=== PATIENT | male | born 1985 ===

== ENCOUNTER 2024-05-24 15:05 | Emergency (ER) | payer BC ==
[2024-05-24 16:02] LABS: BASOPHILS ABSOLUTE AUTO 0.1 K/mm3 (0.0-0.2); BASOPHILS PERCENT AUTO 0.5 % (0.0-1.0); HEMATOCRIT 38.4 % (42.0-52.0); HEMOGLOBIN 13.8 gm/dl (14.0-18.0); IMMATURE GRAN ABSOLUTE AUTO 0.07 K/mm3 (0.00-0.05); IMMATURE GRAN PERCENT AUTO 0.6 % (0.0-0.4); LYMPHOCYTES ABSOLUTE AUTO 1.3 K/mm3 (1.0-4.8); LYMPHOCYTES PERCENT AUTO 10.7 % (24.0-44.0); MEAN CORPUSCULAR HEMOGLOBIN 30.6 pg (28.0-32.0); MEAN CORPUSCULAR HGB CONC 35.9 g/dl (32.0-36.0); MEAN CORPUSCULAR VOLUME 85.1 fl (83.0-99.0); MEAN PLATELET VOLUME 10.6 fl (9.4-12.4); MONOCYTES ABSOLUTE AUTO 0.6 K/mm3 (0.0-0.8); MONOCYTES PERCENT AUTO 4.7 % (0.0-8.0); NEUTROPHILS ABSOLUTE AUTO 10.1 K/mm3 (1.8-7.7); NEUTROPHILS PERCENT AUTO 83.5 % (41.0-71.0); PLATELET COUNT,PLT 273 K/mm3 (150-400); RED BLOOD CELL COUNT 4.51 M/mm3 (4.52-5.90); WHITE BLOOD CELL COUNT,WBC 12.04 K/mm3 (3.9-11.3)
[2024-05-24 16:35] LABS: A/G RATIO 1.5 (1-2); ALANINE AMINOTRANSFERASE,ALT 36 U/L (16-63); ALBUMIN 4.2 g/dl (3.4-5.0); ALKALINE PHOSPHATASE 60 U/L (46-116); ANION GAP 14.3 (5-15); ASPARTATE AMNIOTRANSFERASE,AST 21 U/L (15-37); BILIRUBIN TOTAL 0.9 mg/dL (0.2-1.0); BLOOD UREA NITROGEN,BUN 7 mg/dL (7-18); CALCIUM 8.8 mg/dL (8.5-10.1); CARBON DIOXIDE,CO2 23 mEq/L (21-32); CHLORIDE,CL 91 mEq/L (98-107); EST CRCL DRUG DOSING (CG) 100.16 mL/min; ESTIMATED GFR 99 mL/min (>60); GLUCOSE RANDOM 111 mg/dL (70-99); POTASSIUM,K 3.3 mEq/L (3.5-5.1); SODIUM,NA 125 mEq/L (136-145)
[2024-05-24] MEDS: Ketorolac 30 MG/ML SDV IVPUSH ONE (16:36)
[2024-05-24 16:38] LABS: TROPONIN I HIGH SENSITIVITY < 4 pg/mL (<=76)
[2024-05-24 16:55] LABS: BARBITURATE SCREEN,URINE NEGATIVE (CUTOFF=200); BENZODIAZEPINES SCREEN,URINE NEGATIVE (CUTOFF=150); BUPRENORPHINE SCREEN,URINE NEGATIVE (CUTOFF=10); METHADONE SCREEN, URINE NEGATIVE (CUT0FF=200); METHAMPHETAMINES SCREEN, URINE NEGATIVE (CUTOFF=500); OXYCODONE SCREEN,URINE NEGATIVE (CUT0FF=100); THC SCREEN,URINE 20 NG/ML NEGATIVE (CUTOFF=50)
[2024-05-24] MEDS ORDERED: Sodium Chloride 0.9% 1,000 ML IV SCH (17:00)
[2024-05-24 17:08] LABS: AMPHETAMINES SCREEN, URINE NEGATIVE (CUTOFF=500)
[2024-05-24] MEDS: LORazepam 2 MG/ML SDV IVPUSH ONE (17:19)
[2024-05-24] MEDS: Sodium Chloride 0.9% 500 ML IV SCH (17:40)
[2024-05-24] MEDS: Potassium Chloride 20 MEQ Tab.ER PO ONE (18:10)
[2024-05-24] MEDS: Sodium Chloride 0.9% 1,000 ML IV STA (19:53)
[2024-05-24 20:10] LABS: ANION GAP 13.4 (5-15); BUN/CREATININE RATIO 7.5 (14-18); CALCIUM 8.5 mg/dL (8.5-10.1); CREATININE 0.8 mg/dL (0.7-1.3); EST CRCL DRUG DOSING (CG) 125.2 mL/min; POTASSIUM,K 3.4 mEq/L (3.5-5.1)
[2024-05-24] MEDS: Sodium Chloride 0.9% 10 ML Syringe FLUSH PRN (20:14)
== END 2024-05-24 20:30 | disposition home or self-care (01) ==
LOC: JD.ED 15:05
DX: R07.89 Other chest pain (principal); E87.1 Hypo-osmolality and hyponatremia
CPT/HCPCS: 36415; 70450; 71046; 80048; 80053; 80306; 83930; 84484; 85025; 85379; 93005; 96361; 96374; 99285; A9270; J1885; J3490; J7030; 93010; 99284